=== PATIENT | female | born 1965 | race Caucasian/White ===

== ENCOUNTER 2020-05-17 11:10 | Outpatient (CLI) | payer BC, SELFPAY ==
--- NOTE | ~2020-05-17 | XR_ITS ---
EXAMINATION: XR chest 2V EXAM DATE: 05/17/2020 11:26 INDICATION: Cough and shortness of breath. Essential hypertension. TECHNIQUE: Frontal and lateral projections of the chest obtained and reviewed. Comparison is made to prior examination from 08/01/2018. FINDINGS: The lungs are clear. There are no pleural effusions. The cardiomediastinal silhouette is within normal limits. There is no pneumothorax suspected. Mild thoracic spondylosis. There are chol ecystectomy clips. Lower cervical fusion hardware. IMPRESSION: No acute cardiopulmonary findings. Reviewed, dictated and finalized at location A.
--- NOTE | 2020-05-17 12:09 | ECG_ITS ---
Measurements Intervals [place] Rate: 78 P: 65 [place]: 154 QRS: 11 QRSD: 98 T: 23 QT: 387 QTc: 442 Interpretive Statements SINUS RHYTHM NORMAL ECG Electronically Signed On 05-17-2020 16:25:28 CDT by Keon Diego D.O.
[2020-05-17 12:30] LABS: Hematocrit 44.2 % (37.0-47.0); Hemoglobin 14.7 g/dL (12.0-15.0); Mean Corpuscular HGB Conc 33.3 g/dl (32-36); Mean Corpuscular Hemoglobin 29.4 pg (26-34); Mean Corpuscular Volume 88.4 fl (80-100); Mean Platelet Volume 8.7 fl (7.4-10.4); Platelet Count Result 253 k/mm3 (150-375); Red Cell Distribution Width 13.4 % (11.5-14.5); White Blood Count 8.2 K/mm3 (4.5-10.0)
[2020-05-17 12:42] LABS: Chloride 102 mmol/L (98-107)
[2020-05-17 12:49] LABS: Blood Urea Nitrogen 9 mg/dL (7-17); Calcium 9.3 mg/dL (8.4-10.2); Carbon Dioxide 27 mmol/L (22-30); Estimated Glomerular Filt Rate > 60; Glucose 90 mg/dL (65-105); Sodium 136 mmol/L (137-145)
[2020-05-17 12:52] LABS: NT Pro B Type Natriuretic Pept 149 PG/ML (5-100)
== END 2020-05-17 11:11 | disposition home or self-care (01) ==
PROVIDERS: PCP Family Medicine; Visit Provider Nurse Practitioner Family
DX: R06.02 Shortness of breath (principal); I10 Essential (primary) hypertension; R05 Cough; M79.89 Other specified soft tissue disorders
CPT/HCPCS: 36415; 71046; 80048; 83880; 84443; 85027; 93005

== ENCOUNTER 2020-08-02 15:27 | Outpatient (CLI) | payer BC, SELFPAY ==
--- NOTE | 2020-08-28 19:00 | WPDHOMESLEEP ---
Sleep Study - Home Unattended Date of Study: 08/02/20 Ordering Provider: Harman Engel MD Interpreting Physician: Anamaria Jones MD Home Sleep Study Type: Apnea Link Air Height: 1.7 m Weight: 135.624 kg Body Mass Index: 46.8 [place]: 11 Reason for Sleep Study Poor sleep after an injury with neck surgery in 2012 Sleep History Parag Martínez is a 55 year-old female with an accident requiring neck fusion in 2012. Until then, she always slept on her stomach. This became difficult after the neck surgery. She was told not to sleep on her stomach but finds that she cannot sleep on her back or her side comfortably. She does sleep on her abdomen but positioning is difficult. She tries to adjust herself during sleep for comfort but she wakes up frequently with locked jaw, neck pain, severe headache and poor quality sleep. This happens 3 to 5 times a week. She slept well until 2012. 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 She denies snoring loudly enough that others complain about it although she does occasionally snore. She occasionally awakens at night coughing. She does not have heartburn just a cough. She occasionally awakens from sleep feeling short of breath. She rarely has trouble sleep with a cold. She rarely wakes up gasping for breath at night. She does not have breathing problems at night which have been observed by others. She constantly sweats excessively at night. She occasionally notices her heart pounding or beating irregularly at night. She denies falling asleep during the day, does not fall asleep involuntarily or while driving. She does not have loss of muscle tone with strong emotion. She does not have daytime difficulties due to excessive sleepiness. She rarely feels paralyzed on waking or falling asleep. She frequently has vivid dreamlike scenes upon awakening or falling asleep. She rarely feels afraid to go to sleep. She rarely has nightmares. She occasionally remembers her dreams. She occasionally has racing thoughts. She rarely feels sad or depressed. She occasionally feels anxious. She frequently has muscular tension, rarely notices parts of her body jerking. She does not kick at night. She frequently has crawling and aching feelings in her legs, frequently has leg pain at night and frequently has morning jaw pain. She frequently grinds her teeth at night. She constantly is bothered by pain during the day, is awakened by pain during the night, wakes up feeling stiff in the morning with sore or achy muscles, and she has pain in the neck and spine joints. She has frequent morning headaches. She has bowel disturbances due to IBS, occasional dizziness as well as insomnia on occasion. Normal bedtime is 10:00 p.m. falling asleep in 20 minutes, waking twice at night to urinate. She stays awake only a few minutes after returning from the bathroom. After the 2nd awakening she struggles to get back to sleep. She wakes for the first time about 2 hours after falling asleep. Then she wakes in the middle of the night about 3 or 4 hours after falling asleep. If she cannot get back to sleep easily she will read her [employer] - e-reader. on days her wake-up time is 5:45 a.m. to 6:30 a.m.. On the weekend she stays awake later, 11:00 p.m. on Wednesday night, 12 midnight or his latest 2:00 a.m. on Saturdays. On Wednesday she is back to bed at 10:00 p.m.. On the weekend she wakes between 630 and 10:30 a.m. She does not usually take a nap. A short nap is not refreshing. She feels better in the morning compared to other times of day. She frequently wakes up feeling refreshed. Habits: Never smoked tobacco. Caffeine 2 cups in the morning. No alcohol. Some recreational marijuana on Saturdays. [facility] Past Medical History Medical History (Updated 08/28/20 @ 19:44 by Anamaria Jones MD) Arthritis Benign neoplasm of right breast Hypertension IBS (irritable bowel syndrome) Metabolic syndrome Mixed hyperl
[2020-08-28 19:47] VITALS: BMI 46.8
== END 2020-08-02 15:28 | disposition home or self-care (01) ==
LOC: ANHCSM 15:29
PROVIDERS: PCP Family Medicine; Visit Provider Family Medicine
DX: G47.00 Insomnia, unspecified (principal)
CPT/HCPCS: 95806

== ENCOUNTER 2020-10-14 12:34 | Outpatient (CLI) | payer BC, SELFPAY ==
[2020-10-14 17:10] LABS: SARS-CoV-2 RNA PCR Negative
== END 2020-10-14 12:35 | disposition home or self-care (01) ==
LOC: ANHCOVIDDT 11-19 12:35
PROVIDERS: PCP Family Medicine; Visit Provider Internal Medicine Critical Care Medicine
DX: R68.89 Other general symptoms and signs (principal); Z20.828 Contact with and (suspected) exposure to other viral communicable diseases
CPT/HCPCS: 87635; C9803; U0003

== ENCOUNTER 2020-10-16 14:50 | Outpatient (CLI) | payer BC, SELFPAY ==
--- NOTE | 2020-11-27 15:59 | WPDSLEEPSTUD ---
Sleep Study Date of Study: 10/16/20 Ordering Provider: Harman Engel MD Interpreting Physician: Anamaria Jones MD Sleep Study Type: Polysomnogram Height: 1.7 m Weight: 136.078 kg Body Mass Index: 47.0 Neck Circumference: 43.18 cm [place]: 6 Reason for Sleep Study Poor sleep quality, loud snoring; home sleep test 08/02/2020 with low AHI 3.4; presents for overnight sleep study in the sleep lab Sleep History Mary Martínez is a 55 year old female with poor quality sleep which started in 2012 after an accident requiring neck fusion. Until then, she always slept on her stomach. This became difficult after the neck surgery. She was told not to sleep on her stomach but finds that she cannot sleep on her back or her side comfortably. She does sleep on her abdomen but positioning is difficult. She tries to adjust herself during sleep for comfort but she wakes up frequently with locked jaw, neck pain, severe headache and poor quality sleep. This happens 3 to 5 times a week. 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 She denies snoring loudly enough that others complain about it although she does occasionally snore. She occasionally awakens at night coughing. She does not have heartburn, just a cough. She occasionally awakens from sleep feeling short of breath. She rarely has trouble sleep with a cold. She rarely wakes up gasping for breath at night. She does not have breathing problems at night which have been observed by others. She constantly sweats excessively at night. She occasionally notices her heart pounding or beating irregularly at night. She denies falling asleep during the day, does not fall asleep involuntarily or while driving. She does not have loss of muscle tone with strong emotion. She does not have daytime difficulties due to excessive sleepiness. She rarely feels paralyzed on waking or falling asleep. She frequently has vivid dreamlike scenes upon awakening or falling asleep. She rarely feels afraid to go to sleep. She rarely has nightmares. She occasionally remembers her dreams. She occasionally has racing thoughts. She rarely feels sad or depressed. She occasionally feels anxious. She frequently has muscular tension, rarely notices parts of her body jerking. She does not kick at night. She frequently has crawling and aching feelings in her legs, frequently has leg pain at night and frequently has morning jaw pain. She frequently grinds her teeth at night. She constantly is bothered by pain during the day, is awakened by pain during the night, wakes up feeling stiff in the morning with sore or achy muscles, and she has pain in the neck and spine joints. She has frequent morning headaches. She has bowel disturbances due to IBS, occasional dizziness as well as insomnia on occasion. Normal bedtime is 10:00 p.m. falling asleep in 20 minutes, waking twice at night to urinate. She stays awake only a few minutes after returning from the bathroom. After the 2nd awakening she struggles to get back to sleep. She wakes for the first time about 2 hours after falling asleep. She wakes in the middle of the night about 3 or 4 hours after falling asleep. If she cannot get back to sleep easily, she will read her [employer] - e-reader. On days her wake-up time is 5:45 a.m. to 6:30 a.m.. On the weekend she stays awake later, 11:00 p.m. on Wednesday nights, 12 midnight or at the latest 2:00 a.m. on Saturdays. On Wednesday she is back to bed at 10:00 p.m.. On the weekend she wakes between 6:30 and 10:30 a.m. She does not usually take a nap. A short nap is not refreshing. She feels better in the morning compared to other times of day. She frequently wakes up feeling refreshed. Habits: Never smoked tobacco. Caffeine 2 cups in the morning. No alcohol. Some recreational marijuana on Saturdays. [facility] Past Medical History Medical History Arthritis Benign neoplasm o
[2020-11-27 17:15] VITALS: BMI 47.0
== END 2020-10-16 14:51 | disposition home or self-care (01) ==
PROVIDERS: PCP Family Medicine; Visit Provider Family Medicine
DX: G25.81 Restless legs syndrome (principal); R06.83 Snoring
CPT/HCPCS: 95810

== ENCOUNTER 2021-07-05 07:32 | Outpatient (CLI) | payer BC, SELFPAY ==
--- NOTE | 2021-07-05 08:15 | ECG_ITS ---
Measurements Intervals [place] Rate: 69 P: 16 [place]: 137 QRS: 35 QRSD: 102 T: 37 QT: 396 QTc: 426 Interpretive Statements SINUS RHYTHM WITH SINUS ARRHYTHMIA BASELINE ARTIFACT- II, III, AVF BORDERLINE ECG Electronically Signed On 07-05-2021 14:17:57 CDT by Keon Diego D.O.
[2021-07-05 08:25] LABS: Basophils Absolute Auto 0.1 K/mm3 (0.0-0.1); Basophils Percent Auto 0.9 % (0.2-1.2); Eosinophils Absolute Auto 0.2 K/mm3 (0-0.3); Eosinophils Percent Auto 2.4 % (0-4.4); Hematocrit 44.2 % (37.0-47.0); Hemoglobin 14.4 g/dL (12.0-15.0); Immature Granulocyte Absolute 0.03 K/mm3 (0.00-0.031); Immature Granulocyte Percent A 0.3 % (0-0.5); Lymphocytes Absolute Auto 2.41 K/mm3 (0.9-3.2); Lymphocytes Percent Auto 26.5 % (18.3-44.2); Mean Corpuscular HGB Conc 32.6 g/dl (32-36); Mean Corpuscular Hemoglobin 30.8 pg (26-34); Mean Corpuscular Volume 94.4 fl (80-100); Monocytes Absolute Auto 0.6 K/mm3 (0.1-0.6); Monocytes Percent Auto 6.7 % (2.6-8.5); Neutrophils Absolute Auto 5.7 K/mm3 (1.3-6.7); Neutrophils Percent Auto 63.2 % (45.5-73.1); Platelet Count Result 247 k/mm3 (150-375); Red Blood Count 4.68 M/mm3 (4.2-5.4); Red Cell Distribution Width 13.8 % (11.5-14.5); White Blood Count 9.1 K/mm3 (4.5-10.0)
[2021-07-05 08:48] LABS: Alanine Aminotransferase 15 U/L (4-35); Albumin Level 4.1 g/dL (3.5-5.1); Alkaline Phosphatase 71 U/L (38-126); Anion Gap 6 mmol/L (8-16); Aspartate Amino Transferase 23 U/L (14-36); Bilirubin,Total 0.7 mg/dL (0.2-1.3); Blood Urea Nitrogen 10 mg/dL (7-17); Calcium 9.4 mg/dL (8.4-10.2); Carbon Dioxide 29 mmol/L (22-30); Chloride 106 mmol/L (98-107); Cholesterol 195 mg/dL (0-200); Estimated Glomerular Filt Rate > 60; Glucose 111 mg/dL (65-110); HDL Direct 64 mg/dL; Potassium 4.4 mmol/L (3.4-5.0); Sodium 141 mmol/L (137-145); Triglycerides 116 mg/dL (<150)
[2021-07-05 08:58] LABS: LDL Cholesterol Direct 92 mg/dL
== END 2021-07-05 07:33 | disposition home or self-care (01) ==
PROVIDERS: PCP Family Medicine; Visit Provider Nurse Practitioner Family
DX: E78.5 Hyperlipidemia, unspecified (principal); R55 Syncope and collapse; I49.9 Cardiac arrhythmia, unspecified
CPT/HCPCS: 36415; 80053; 80061; 84443; 85025; 93005

== ENCOUNTER 2021-09-19 10:02 | Outpatient (CLI) | payer BC, SELFPAY ==
--- NOTE | ~2021-09-19 | MM_ITS ---
EXAMINATION: MM screening lily BI w debbie HISTORY: Screening mammogram TECHNIQUE: Craniocaudal and mediolateral oblique 3-D tomosynthesis images were obtained and synthetic 2-D images were generated. CAD analysis was submitted and interpreted. COMPARISON: 06/05/2019 bilateral screening mammogram examinations BREAST PARENCHYMAL COMPOSITION: FINDINGS: Occasional bilateral circumscribed low-density benign-appearing masses, stable 05/26/2019. Oc casional benign calcifications There is no evidence of suspicious mass, calcification, or architectur al distortion to suggest malignancy in either breast. There has been no suspicious interval change. IMPRESSION: 1. No mammographic evidence of malignancy. 2. Recommend routine screening mammography in one year. BI-RADS Category 2: Benign finding(s). Reviewed, dictated and finalized at location A. 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
== END 2021-09-19 10:03 | disposition home or self-care (01) ==
LOC: ANHIMG 10:05
PROVIDERS: PCP Family Medicine; Visit Provider Family Medicine
DX: Z12.31 Encounter for screening mammogram for malignant neoplasm of breast (principal)
CPT/HCPCS: 77063; 77067

== ENCOUNTER 2022-04-01 08:51 | Outpatient (CLI) | payer BC, SELFPAY ==
--- NOTE | ~2022-04-01 | XR_ITS ---
XR lumbar spine 2-3V DATE: 04/01/2022 09:16 INDICATION: Injury. Low back pain, bilateral hip pain. TECHNIQUE: AP, lateral, coned lateral lumbosacral views COMPARISON: None FINDINGS: There is degenerative spurring of the lower thoracic spine and mild degenerative spurring o f the lumbar spine. Lumbar and upper sacral interspaces are relatively well preserved. There is minimal grade 1 anterolisthesis at L4-5 due to degenerative change at the apophyseal joints. There is mild levoscoliosis of the thoracolumbar spine. The sacroiliac joints are intact. Status post cholecystectomy. IMPRESSION: Mild thoracolumbar levoscoliosis Degenerative spurring of the lower thoracic spine Mild degenerative disc disease of the lumbar spine Grade 1 anterolisthesis at L4-5 due to degenerative change at the apophyseal joints Reviewed, dictated and finalized at location A. IMPRESSION: Mild thoracolumbar levoscoliosis Degenerative spurring of the lower thoracic spine Mild degenerative disc disease of the lumbar spine Grade 1 anterolisthesis at L4-5 due to degenerative change at the apophyseal breanna ints
--- NOTE | ~2022-04-01 | XR_ITS ---
XR hip BI wo pelvis DATE: 04/01/2022 09:16 INDICATION: Bilateral hip pain TECHNIQUE: AP and lateral views of each hip COMPARISON: None FINDINGS: No fracture, dislocation, avascular necrosis or bone destruction of either hip is evident. Joint spaces are symmetric and relatively preserved. Mild spurring of the left acetabulum. The pubic symphysis and sacroiliac joints are intact. IMPRESSION: Mild spurring of left acetabulum Reviewed, dictated and finalized at location A.
== END 2022-04-01 08:52 | disposition home or self-care (01) ==
PROVIDERS: PCP Family Medicine; Visit Provider Nurse Practitioner Family
DX: M25.559 Pain in unspecified hip (principal); M51.36 Other intervertebral disc degeneration, lumbar region
CPT/HCPCS: 72100; 73521

== ENCOUNTER 2022-08-20 14:37 | Outpatient (CLI) | payer OTHER, SELFPAY ==
[2022-08-20 15:29] LABS: Erythrocyte Sedimentation Rate 11 mm/hr (0-20)
[2022-08-20 18:37] LABS: Rheumatoid Factor < 12.0 IU/ML (<12)
== END 2022-08-20 14:38 | disposition home or self-care (01) ==
LOC: ANHLAB 14:39
PROVIDERS: PCP Family Medicine; Visit Provider Nurse Practitioner Family
DX: G89.29 Other chronic pain (principal)
CPT/HCPCS: 36415; 85652; 86038; 86430

== ENCOUNTER 2022-11-21 07:08 | Outpatient (CLI) | payer OTHER, SELFPAY ==
--- NOTE | ~2022-11-21 | MM_ITS ---
EXAMINATION: MM screening lily BI w debbie HISTORY: Screening mammogram TECHNIQUE: Craniocaudal and mediolateral oblique 3-D tomosynthesis images were obtained and synthetic 2-D images were generated. CAD analysis was submitted and interpreted. COMPARISON: 09/19/2021 bilateral screening mammogram 06/16/2019 right ultrasound-guided breast biopsy and post biopsy mammogram 05/26/2019 bilateral screening mammogram BREAST PARENCHYMAL COMPOSITION: There are scattered areas of fibroglandular density. FINDINGS: History of prior benign right breast ultrasound-guided biopsy. Again noted are occasional bilateral benign appearing circumscribed low-density masses, similar to 05/26/2019. There is no evidence of suspicious mass, calcification, or architectural distortion to sugges t malignancy in either breast. There has been no suspicious interval change. IMPRESSION: 1. No mammographic evidence of malignancy. 2. Recommend routine screening mammography in one year. BI-RADS Category 2: Benign finding(s). Reviewed, dictated and finalized at location A. 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
== END 2022-11-21 07:09 | disposition home or self-care (01) ==
LOC: ANHIMG 07:11
PROVIDERS: PCP Family Medicine; Visit Provider Family Medicine
DX: Z12.31 Encounter for screening mammogram for malignant neoplasm of breast (principal)
CPT/HCPCS: 77063; 77067

== ENCOUNTER 2023-12-28 14:02 | Outpatient (CLI) | payer OTHER, SELFPAY ==
--- NOTE | ~2023-12-28 | XR_ITS ---
EXAMINATION: XR lumbar spine min 4V, XR sacrum coccyx min 2V DATE: 12/28/2023 14:26 INDICATION: 6 weeks of low back pain radiating down the left leg TECHNIQUE: 1. Anteroposterior, lateral, and bilateral oblique views of the lumbar spine, and cone-down lateral v iew of the lumbosacral junction were obtained. 2. AP, angled AP and lateral views of the sacrum and coccyx were obtained. COMPARISON: Lumbar spine radiographs dated 04/01/2022 FINDINGS: 4 mm anterolisthesis L4 on L5 and 2 mm retrolisthesis L5 on S1. Vertebral body heights are normal. Mi ld disc height loss at L2-L3 through L4-L5 and moderate disc height loss at T9-T10 through T11-T12. M oderate lower lumbar predominant facet osteoarthritis. No pars interarticularis defects. Cholecystect kalani clips in right upper quadrant. Pelvis, sacrum and coccyx: Alignment is normal. Sacral arches are intact. No fractures. Mild bilateral sacroiliac and hip osteoa rthritis. IMPRESSION: 1. Mild lumbar and moderate lower thoracic spondylosis. 2. Mild bilateral sacroiliac osteoarthritis. Reviewed, dictated and finalized at location L. IMPRESSION: 1. Mild lumbar and moderate lower thoracic spondylosis. 2. Mild bilateral sacroiliac osteoarthritis.
== END 2023-12-28 14:03 | disposition home or self-care (01) ==
PROVIDERS: PCP Family Medicine; Visit Provider Nurse Practitioner Family
DX: S39.92XA Unspecified injury of lower back, initial encounter (principal); X58.XXXA Exposure to other specified factors, initial encounter; M47.894 Other spondylosis, thoracic region; M47.896 Other spondylosis, lumbar region; M53.3 Sacrococcygeal disorders, not elsewhere classified
CPT/HCPCS: 72110; 72220

== ENCOUNTER 2024-01-17 12:55 | Outpatient (CLI) | payer OTHER, SELFPAY ==
--- NOTE | ~2024-01-17 | MMUS_ITS ---
EXAMINATION: MM diagnostic lily BI w debbie, US axilla RT HISTORY: Palpable right axillary abnormality TECHNIQUE: Additional 3-D tomosynthesis images of the breasts were performed and synthetic 2-D images were generated. CAD analysis was submitted and interpreted. High resolution right axillary ultrasoun d was performed. COMPARISON: Comparison to multiple prior studies sequentially, with oldest reviewed study dated 06/2019. BREAST PARENCHYMAL COMPOSITION: Not dense: There are scattered areas of fibroglandular density. FINDINGS: MAMMOGRAPHIC FINDINGS: The breasts are stable. There are no suspicious masses, calcifications or architectural distortion in either breast to suggest malignancy. ULTRASOUND: Right axillary ultrasound: Multiple normal right axillary lymph nodes which retain their fatty hilum, largest measuring 1.5 x 1.3 x 0.8 cm. No suspicious masses or fluid collections. IMPRESSION: 1. No evidence for malignancy in either breast. Benign findings. 2. Routine yearly screening mammogram and regular clinical breast examination are recommended. BI-RADS Category 2: Benign finding(s). Reviewed, dictated and finalized at location A. IMPRESSION: 1. No evidence for malignancy in either breast. Benign findings. 2. Routine yearly screening mammogram and regular clinical breast examination a re recommended. BI-RADS Category 2: Benign finding(s).
== END 2024-01-17 12:56 | disposition home or self-care (01) ==
LOC: ANHIMG 12:57
PROVIDERS: PCP Family Medicine; Visit Provider Nurse Practitioner Family
DX: Q83.9 Congenital malformation of breast, unspecified (principal); D24.1 Benign neoplasm of right breast
CPT/HCPCS: 76882; 77062; 77066; G0279

== ENCOUNTER 2024-03-05 07:54 | Emergency (ER) | payer OTHER, SELFPAY ==
--- NOTE | ~2024-03-05 | US_ITS ---
EXAMINATION: US venous doppler [facility] DATE: 03/05/2024 09:13 INDICATION: Left lower limb pain and swelling. TECHNIQUE: Grayscale ultrasound images without and with compression and Doppler ultrasound images of the left lower extremity veins were obtained. COMPARISON: None. FINDINGS: The visualized portions of left common femoral vein, profunda (deep) femoral vein, femoral vein, popl iteal vein, peroneal veins, posterior tibial veins, and greater saphenous vein outflow are patent. IMPRESSION: 1. No deep venous thrombosis. Reviewed, dictated and finalized at location A.
[2024-03-05 07:59] VITALS: BP 156/91; PULSE 66; RESP 15; TEMP 36.6; O2SAT 99
[2024-03-05] MEDS: KETOROLAC 30 MG/ML VIAL (*BKC) IM (08:47)
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
[2024-03-05 10:29] VITALS: BP 161/92; PULSE 73; RESP 15; TEMP 36.6; O2SAT 100
== END 2024-03-05 10:31 | disposition home or self-care (01) ==
PROVIDERS: Emergency Provider Emergency Medicine; PCP Family Medicine
DX: M54.42 Lumbago with sciatica, left side (principal); M19.90 Unspecified osteoarthritis, unspecified site; I10 Essential (primary) hypertension; E78.5 Hyperlipidemia, unspecified; M79.89 Other specified soft tissue disorders
CPT/HCPCS: 93971; 96372; 99284; J1885

== ENCOUNTER 2024-04-04 15:25 | Outpatient (CLI) | payer OTHER, SELFPAY ==
--- NOTE | ~2024-04-04 | XR_ITS ---
EXAM: XR hip LT 2V w AP pelvis DATE: 04/04/2024 15:40 HISTORY: LEFT HIP PAIN . COMPARISON: X-ray sacrum coccyx 12/28/2023; x-ray bilateral hips 04/01/2022. FINDINGS: Lumbar degenerative disc disease. Mild degenerative changes in the bilateral SI joints. Mi ld bilateral hip superior joint space narrowing and osteophytosis. Mild scattered pelvic enthesopathy . IMPRESSION: Mild left hip osteoarthritis. Reviewed, dictated and finalized at location K.
== END 2024-04-04 15:26 ==
LOC: MICIMG 15:26
PROVIDERS: PCP Family Medicine; Visit Provider Nurse Practitioner Family
DX: M16.12 Unilateral primary osteoarthritis, left hip (principal)
CPT/HCPCS: 73502

== ENCOUNTER 2024-04-11 07:24 | Outpatient (CLI) | payer OTHER, SELFPAY ==
--- NOTE | ~2024-04-11 | MR_ITS ---
EXAMINATION: MR lumbar spine wo con DATE: 04/11/2024 07:50 INDICATION: Lumbar radiculopathy TECHNIQUE: Magnetic resonance imaging (MRI) of the lumbar spine was performed without intravenous con trast. Sequences included sagittal T2-weighted FSE, sagittal T2-weighted FS FSE, sagittal T1-weighted FSE, and axial T2-weighted FSE. COMPARISON: 06/23/2016 FINDINGS: 1 mm anterolisthesis L4 on L5. For millimeter retrolisthesis L5 on S1. Vertebral body heights are no rmal. Mild fibrofatty degenerative endplate is along the anterior endplates at multiple levels. Marro w signal is otherwise normal. Mild disc height loss at T11-T12 and L2-L3 through L5-S1. The conus med ullaris terminates at L1-L2. There is normal signal in the caudal spinal cord. Paravertebral soft tis sues are unremarkable. The following disc levels are specifically discussed: T11-T12: Moderate diffuse disc bulge. There is moderate right and mild left facet osteoarthritis. The re is mild right neural foraminal stenosis. There is mild central canal stenosis. T12-L1: Disc is minimally bulging. There is mild right and moderate left facet joint osteoarthritis. There is no neural foraminal stenosis. There is no central canal stenosis. L1-L2: Disc is mildly bulging. There is mild bilateral facet joint osteoarthritis. There is no neural foraminal stenosis. There is no central canal stenosis. L2-L3: Disc is mildly bulging with and annular fissure and superimposed left foraminal zone disc prot rusion. There is mild left and moderate right facet joint osteoarthritis. There is mild bilateral, le ft greater than right neural foraminal stenosis. There is mild central canal stenosis. L3-L4: Disc is bulging. There is moderate left and moderate to severe right facet joint osteoarthriti s. There is mild bilateral neural foraminal stenosis. There is mild to moderate central canal stenosi s. L4-L5: Disc is mildly bulging. There is severe bilateral facet joint osteoarthritis. There is mild bi lateral neural foraminal stenosis. There is severe central canal stenosis. L5-S1: Disc is mildly bulging with superimposed annular fissure and small central disc extrusion with disc material extending up to 6 mm caudal to the level of the superior endplate of S1. There is mode rate bilateral facet joint osteoarthritis. There is mild bilateral neural foraminal stenosis. There i s no central canal stenosis. IMPRESSION: 1. Mild lumbar spondylosis most notable for severe central canal stenosis at L4-L5 resulting primaril y from severe bilateral facet osteoarthritis. Reviewed, dictated and finalized at location B. IMPRESSION: 1. Mild lumbar spondylosis most notable for severe central canal stenosis at L4 -L5 resulting primarily from severe bilateral facet osteoarthritis.
== END 2024-04-11 07:25 ==
PROVIDERS: PCP Family Medicine; Visit Provider Nurse Practitioner Family
DX: M47.26 Other spondylosis with radiculopathy, lumbar region (principal)
CPT/HCPCS: 72148

== ENCOUNTER 2024-06-27 12:54 | Outpatient (CLI) | payer BC, SELFPAY ==
--- NOTE | ~2024-06-27 | MR_ITS ---
EXAMINATION: MR hip LT wo con DATE: 06/27/2024 14:00 INDICATION: Left hip pain TECHNIQUE: Magnetic resonance imaging (MRI) of the left hip was performed without intravenous contra st. Sequences included full-field axial PD-weighted FS FSE and T1-weighted FSE, coronal of the pelvis with PD-weighted FS FSE, small field of view of the left hip with axial PD-weighted FS FSE, sagitta l PD-weighted FS FSE and coronal PD weighted FS FSE. Additional radial T1-weighted FGR oriented ortho gonal to the acetabular rim were obtained for evaluation of the labrum. COMPARISON: Left hip radiographs dated 04/04/2024 FINDINGS: Bones/labrum/cartilage: Alignment is normal. No fracture, avascular necrosis or pathologic marrow replacing process. Labrum is normal. Mild osteoarthritis at the left hip with mild nonuniform partial-thickness cartilage loss predominantly along the superolateral and posterior inferior joint space. Mild to moderate lower lumb ar spondylosis. Fluid: Symmetric physiologic amount of fluid within both hip joints. Soft tissues: 3.2 x 2.5 to 2.6 cm intramuscular lipoma, within the left obturator externus muscle belly. There is a symmetric mild left-sided and minimal right-sided increased fluid signal in the quadratus femoris mus culature situated centered between the ischial tuberosity and the lesser trochanters which can be see n with ischiofemoral impingement syndrome. Otherwise normal and symmetric muscle bulk and signal in t he pelvis and visualized proximal thighs. The iliopsoas, gluteal and proximal hamstring tendons are n ormal. There are few sigmoid diverticula without adjacent inflammatory stranding to suggest diverticu litis. The uterus is not identified and has likely been surgically resected. No pathologically enlar ged pelvic/inguinal lymphadenopathy. IMPRESSION: 1. Mild left hip osteoarthritis. No acute osseous abnormality. 2. Mild left-sided and minimal right-sided increased fluid signal in the bilateral quadratus femoris muscles situated between the initial tuberosities and the lesser trochanters suspicious along with mi ld asymmetric atrophy of the left versus the right quadratus femoris muscle consistent with ischiofem oral impingement. Along the medial margin of the region of increased signal on the left is a 3.2 x 2. 5 x 2.6 cm intramuscular lipoma within the left obturator externus muscle which might contribute to t he impingement. Reviewed, dictated and finalized at location B. IMPRESSION: 1. Mild left hip osteoarthritis. No acute osseous abnormality. 2. Mild left-sided and minimal right-sided increased fluid signal in the bilate ral quadratus femoris muscles situated between the initial tuberosities and the lesser trochanters suspicious along with mild asymmetric atrophy of the left v ersus the right quadratus femoris muscle consistent with ischiofemoral impingem ent. Along the medial margin of the region of increased signal on the left is a 3.2 x 2.5 x 2.6 cm intramuscular lipoma within the left obturator externus mus lynda which might contribute to the impingement.
== END 2024-06-27 12:55 | disposition home or self-care (01) ==
PROVIDERS: PCP Family Medicine; Visit Provider Orthopaedic Surgery
DX: M16.12 Unilateral primary osteoarthritis, left hip (principal)
CPT/HCPCS: 73721

== ENCOUNTER 2025-03-20 14:02 | Outpatient (CLI) | payer BC, SELFPAY ==
--- NOTE | ~2025-03-20 | MM_ITS ---
EXAMINATION: MM screening lily BI w debbie HISTORY: Screening mammogram TECHNIQUE: Craniocaudal and mediolateral oblique 3-D tomosynthesis images were obtained and synthetic 2-D images were generated. CAD analysis was submitted and interpreted. COMPARISON: 11/21/2022 through 08/13/2017 BREAST PARENCHYMAL COMPOSITION: There are scattered areas of fibroglandular density. FINDINGS: No suspicious mass, calcification, or architectural distortion are identified in either donny ast to suggest malignancy. IMPRESSION: 1. No mammographic evidence of malignancy. 2. Recommend routine screening mammography in one year. BI-RADS Category 1: Negative Reviewed, dictated and finalized at location B.
== END 2025-03-20 14:03 | disposition home or self-care (01) ==
PROVIDERS: PCP Family Medicine; Visit Provider Family Medicine
DX: Z12.31 Encounter for screening mammogram for malignant neoplasm of breast (principal)
CPT/HCPCS: 77063; 77067